=== PATIENT | female | born 1990 | race Caucasian/White ===

== ENCOUNTER 2023-12-01 11:33 | Emergency (ER) | payer MEDICAID ==
[~2023-12-01] VITALS: Ht 162.6 cm; Wt 57.6 kg
[2023-12-01] MEDS: IV NS 0.9% 500 ML BAG IV ONE (12:25)
[2023-12-01 12:30] LABS: BASOPHILS % (AUTO) 0.8 % (0.0-2.0); EOSINOPHILS % (AUTO) 0.5 % (0.0-6.0); HEMATOCRIT 33 % (33-45); HEMOGLOBIN 10.1 g/dL (11.5-14.8); LYMPHOCYTES % (AUTO) 16.8 % (20.0-44.0); MEAN CORPUSCULAR HEMOGLOBIN 22 PG (26.0-33.0); MEAN CORPUSCULAR HGB CONC 31 g/dl (31.0-36.0); MEAN CORPUSCULAR VOLUME 71 fL (82-100); MONOCYTES # (AUTO) 0.4 K/uL (0.1-1.30); MONOCYTES % (AUTO) 6.1 % (2.0-12.0); NEUTROPHILS # (AUTO) 4.6 K/uL (1.8-8.9); NEUTROPHILS % (AUTO) 75.8 % (43.0-81.0); PLATELET COUNT (AUTO) 470 K/uL (150-450); RED BLOOD CELL COUNT(AUTO) 4.59 MIL/uL (4.0-5.2); RED CELL DISTRIBUTION WIDTH 15.3 % (11.5-15.0); WHITE BLOOD COUNT (AUTO) 6.1 K/uL (4.3-11.0)
[2023-12-01 12:44] LABS: CALCIUM, SERUM 9.6 mg/dL (8.5-10.1); CARBON DIOXIDE 26 mmol/L (21-32); CHLORIDE 103 mmol/L (98-107); CREATININE 0.8 mg/dL (0.6-1.3); GLUCOSE 88 mg/dL (74-106); SODIUM SERUM 139 mmol/L (136-145); UREA NITROGEN, BLOOD 13 mg/dL (7-18)
[2023-12-01 12:49] LABS: PREGNANCY TEST URINE QUAL NEGATIVE (NEGATIVE)
[2023-12-01 12:52] LABS: LACTIC ACID 1.2 mmol/L (0.4-2.0)
[2023-12-01 12:58] LABS: ALANINE AMINOTRANSFERASE 30 U/L (12-78); ALBUMIN 3.9 g/dL (3.4-5.0); ALKALINE PHOSPHATASE 92 U/L (46-116); ASPARTATE AMINOTRANSFERASE 17 U/L (15-37); BILIRUBIN,DIRECT 0.2 mg/dL (0.0-0.2); BILIRUBIN,TOTAL 0.9 mg/dL (0.2-1.0); TOTAL PROTEIN, SERUM 8.3 g/dL (6.4-8.2)
[2023-12-01 13:59] VITALS: BP 114/60; TEMP 98.4; O2SAT 99
== END 2023-12-01 13:59 | disposition home or self-care (01) ==
LOC: ER 11:37
DX: R55 Syncope and collapse (principal); R10.2 Pelvic and perineal pain
CPT/HCPCS: 99285; 96360; 71045; 93005 ×2; 85025; 80048; 87040; 83605; 80076; 85378; 84703; 36415; 84484; 86850; J7040